=== PATIENT | male | born 1955 | race Two or more races ===

== ENCOUNTER 2023-05-06 09:13 | Day surgery (SDC) | payer OTHER | END 2023-05-06 14:50 | disposition home or self-care (01) | LOC: AMB-ENDOS 09:13 | PROVIDERS: ATTEND Internal Medicine Gastroenterology | DX: D12.3 Benign neoplasm of transverse colon (principal); K57.30 Diverticulosis of large intestine without perforation or abscess without bleeding; R10.13 Epigastric pain; K29.70 Gastritis, unspecified, without bleeding; Z20.822 Contact with and (suspected) exposure to COVID-19 ==

== ENCOUNTER 2024-12-27 14:40 | Emergency (ER) | payer OTHER ==
[~2024-12-27] VITALS: Ht 185.4 cm; Wt 80.7 kg
[2024-12-27] MEDS ORDERED: CABENUVA 400 MG-4 ML IM (17:35)
[2024-12-27] MEDS ORDERED: MONTELUKAST SODI4 M1 (17:36)
[2024-12-27] MEDS ORDERED: DOXAZOSIN MESYLA2 MG PO (17:36)
[2024-12-27] MEDS ORDERED: PRAVASTATIN SOD10 MG PO (17:36)
[2024-12-27] MEDS ORDERED: TESTIM5 GM (17:37)
[2024-12-27] MEDS ORDERED: LEVOTHYROXINE25 MCG PO (17:37)
[2024-12-27] MEDS ORDERED: COZAAR100 MG PO (17:37)
[2024-12-27] MEDS ORDERED: VALACYCLOVIR500 MG PO (17:37)
[2024-12-27] MEDS ORDERED: CEFTRIAXONE SODIUM 1,000 MG VIAL IM ONE (21:30)
[2024-12-27 22:11] LABS: BASO % 0.5 % (0.1-1.2); EOS # 0.11 (0.04-0.54); EOS % 1.7 % (0.7-7.0); HEMATOCRIT 46.9 % (40.1-51.0); HEMOGLOBIN 15.8 g/dL (13.7-17.5); LYMPH # 2.08 (1.18-3.74); LYMPH % 32.7 % (19.3-53.1); MEAN CORPUSCULAR HEMOGLOBIN 32.5 pg (25.6-32.2); MONO # 0.54 (0.24-0.82); MONO % 8.5 % (4.7-12.5); NEUT # 3.58 (1.56-6.13); NEUT % 56.1 % (34.0-71.1); PLATELET COUNT 171 K/uL (163-369); RED BLOOD COUNT 4.86 M/uL (4.63-6.08); RED CELL DISTRIBUTION WIDTH 13.1 % (11.6-14.4)
[2024-12-27] MEDS ORDERED: CEPHALEXIN500 MG PO (22:43)
== END 2024-12-27 23:38 | disposition home or self-care (01) ==
LOC: ER 14:40
PROVIDERS: Preventive Medicine Public Health & General Preventive Medicine
DX: L08.9 Local infection of the skin and subcutaneous tissue, unspecified (principal); B20 Human immunodeficiency virus [HIV] disease; Z88.2 Allergy status to sulfonamides
CPT/HCPCS: 36415; 96372; 99282; J0696